=== PATIENT | female | born 1940 | race Caucasian/White ===

== ENCOUNTER 2016-07-29 10:39 | Inpatient (IN) | payer MEDICARE ==
[~2016-07-29] VITALS: Ht 157.5 cm; Wt 81.3 kg
[~2016-07-29 10:39] MED LIST: ESTRGEL; NIFE20 PO; ROPI.25 PO; ROPI.5 PO
[2016-07-29 10:58] VITALS: BP 164/75; PULSE 79; RESP 18; TEMP 98.8; O2SAT 96
[2016-07-29] MEDS ORDERED: NIFE10 PO (11:53)
[2016-07-29] MEDS ORDERED: ESTRGEL (11:53)
[2016-07-29] MEDS ORDERED: LOSA50TA PO (11:53)
[2016-07-29] MEDS ORDERED: ZITH500T PO (11:55)
--- NOTE | 2016-07-29 13:42 | PD ---
HPI Chief Complaint: Respiratory Symptoms Time Seen by Provider: 13:29 Travel History International Travel<30 days: No Contact w/Intl Traveler<30days: No Traveled to known affect area: No History of Present Illness HPI This 75-year-old female is complaining of cough and malaise. She says that Saturday she called her primary care doctor because of the symptoms. He saw her on and ordered a chest x-ray. The chest x-ray apparently showed pneumonia. She was initially started on amoxicillin. This was changed to Augmentin. He is also had 4 tablets of Zithromax She has been coughing and has had sporadic vomiting. She says that she has coughed up some blood. She has been wheezing at times. She has no history of asthma. She has never smoked. She has been having fevers primarily at night. PFSH Past Medical History Cancer: No Cardiovascular Problems: No Diabetes: No Diminished Hearing: No GERD: Yes Hepatitis: No Hiatal Hernia: No Hypertension: Yes Musculoskeletal: Yes (CHRONIC SCIATIC PAIN) Psychiatric: No Respiratory: No Thyroid Disease: No Influenza Vaccination: Yes Menopausal: Yes : 3 Para: 1 Tubal Ligation: Yes Past Surgical History Abdominal Surgery: Yes (GALLBLADDER ) Cholecystectomy: Yes Genitourinary Surgery: Yes (TUBAL LIGATION, HYSTERECTOMY ) Hysterectomy: Yes Neurologic Surgery: Yes (LUMBAR FUSION 2010) Pacemaker: No Other Surgery: Yes (BREAST IMPLANTS) Social History Alcohol Use: No Tobacco Use: No Substance Use: No Allergies-Medications (Allergen,Severity, Reaction): Coded Allergies: No Known Allergies (Unverified , 07/29/16) Reported Meds & Prescriptions Reported Meds & Active Scripts Active Requip (Ropinirole HCl) 0.5 Mg Tab 0.5 Mg PO HS Reported Zithromax (Azithromycin) 500 Mg Tab 500 Mg PO DAILY Estrogel Topical (Estradiol) 0.06% Gel 1 Losartan (Losartan Potassium) 50 Mg Tab 50 Mg PO DAILY Procardia (Nifedipine) 10 Mg Cap 20 Mg PO DAILY Review of Systems General / Constitutional: Positive: Fever, Chills Eyes: No: Diploplia, Blurred Vision HENT: No: Headaches, Vertigo Cardiovascular: No: Chest Pain or Discomfort, Palpitations Respiratory: Positive: Cough, Shortness of Breath, Wheezing, Hemoptysis Gastrointestinal: Positive: Vomiting Genitourinary: No: Urgency, Frequency Musculoskeletal: No: Myalgias, Arthralgias Skin: No Rash Neurologic: Positive: Weakness Hematologic/Lymphatic: No: Easy Bruising Physical Exam Narrative GENERAL: Well-developed female SKIN: Warm and dry. HEAD: Atraumatic. Normocephalic. EYES: Pupils equal and round. No scleral icterus. No injection or drainage. ENT: No nasal bleeding or discharge. Mucous membranes pink and moist. NECK: Trachea midline. No JVD. CARDIOVASCULAR: Regular rate and rhythm. No murmur appreciated. RESPIRATORY: No accessory muscle use. There are scattered wheezes or prominent in the right hemithorax. Breath sounds equal bilaterally. GASTROINTESTINAL: Abdomen soft, non-tender, nondistended. Hepatic and splenic margins not palpable. MUSCULOSKELETAL: No obvious deformities. No clubbing. No cyanosis. No edema. NEUROLOGICAL: Awake and alert. No obvious cranial nerve deficits. Motor grossly within normal limits. Normal speech. PSYCHIATRIC: Appropriate mood and affect; insight and judgment normal. Data Data Last Documented VS Vital Signs Date Time Temp Pulse Resp B/P Pulse Ox O2 Delivery O2 Flow Rate FiO2 07/29/16 12:02 14 96 Room Air 07/29/16 10:58 98.8 79 164/75 Orders Complete Blood Count With Diff (07/29/16 13:37) Comprehensive Metabolic Panel (07/29/16 13:37) Lactic Acid Sepsis Protocol (07/29/16 13:37) Influenzae A/B Antigen (07/29/16 13:37) Urinalysis - C+S If Indicated (07/29/16 13:37) Blood Culture (07/29/16 13:37) Chest, Single Ap (07/29/16 13:37) Sodium Chloride 0.9% Flush (Ns Flush) (07/29/16 13:45) Ceftriaxone Inj (Rocephin Inj) (07/29/16 14:10) Azithromycin Inj (Zithromax Inj) (07/29/16 14:10) Potassium Chloride (Kcl) (07/29/16 14:45) Labs Laboratory Tests Test 07/29/16 07/29/16 13:44 13:50 Urine Collection Type CLEAN CATCH Urine Color YELLOW Urine Turbidity CLEAR Urine pH 6.0 Urine Specific [place] 1.025 Urine Protein 100 mg/dL Urine Glucose (UA) NEG mg/dL Urine Ketones NEG mg/dL Urine Occult Blood MOD Urine Nitrite NEG Urine Bilirubin NEG Urine Leukocyte Esterase NEG Urine RBC 0-3 /hpf Urine WBC 0-2 /hpf Urine Amorphous Sediment FEW Microscopic Urinalysis Comment CULT NOT INDICATED White Blood Count 9.1 TH/MM3 Red Blood Count 4.06 MIL/MM3 Hemoglobin 11.7 GM/DL Hematocrit 35.0 % Mean Corpuscular Volume 86.2 FL Mean Corpuscular Hemoglobin 28.7 PG Mean Corpuscular Hemoglobin 33.3 % Concent Red Cell Distribution Width 12.5 % Platelet Count 337 TH/MM3 Mean Platelet Volume 7.2 FL Neutrophils (%) (Auto) 71.3 % Lymphocytes (%) (Auto) 14.3 % Monocytes (%) (Auto) 11.9 % Eosinophils (%) (Auto) 2.2 % Basophils (%) (Auto) 0.3 % Neutrophils # (Auto) 6.5 TH/MM3 Lymphocytes # (Auto) 1.3 TH/MM3 Monocytes # (Auto) 1.1 TH/MM3 Eosinophils # (Auto) 0.2 TH/MM3 Basophils # (Auto) 0.0 TH/MM3 CBC Comment DIFF FINAL Differential Comment Sodium Level 143 MEQ/L Potassium Level 2.8 MEQ/L Chloride Level 107 MEQ/L Carbon Dioxide Level 26.0 MEQ/L Anion Gap 10 MEQ/L Blood Urea Nitrogen 17 MG/DL Creatinine 0.87 MG/DL Estimat Glomerular Filtration 64 ML/MIN Rate Random Glucose 94 MG/DL Lactic Acid Level 1.4 mmol/L Calcium Level 8.5 MG/DL Total Bilirubin 0.6 MG/DL Aspartate Amino Transf 58 U/L (AST/SGOT) Alanine Aminotransferase 71 U/L (ALT/SGPT) Alkaline Phosphatase 135 U/L Total Protein 7.5 GM/DL Albumin 2.6 GM/DL [facility] Medical Decision Making Medical Screen Exam Complete: Yes Emergency Medical Condition: Yes Medical Record Reviewed: Yes Differential Diagnosis Differential includes pneumonia, URI, influenza Narrative Course Chest x-ray shows extensive infiltrate in the right side of the thorax. I was able to review the x-ray that was done at [facility] last week and the x-ray today shows considerable progression of her pneumonia. Patient has failed outpatient treatment Diagnosis Primary Impression: Pneumonia Qualified Code: J18.9 - Pneumonia of right lung due to infectious organism, unspecified part of lung Admitting Information Admitting Physician Requests: Admit Domingo Emery MD Jul 29, 2016 13:41
[2016-07-29] MEDS ORDERED: SODIUM CHLORIDE 0.9% FLUSH 5 ML FLUSH IVF PRN (13:45)
[2016-07-29 13:56] LABS: GLUCOSE,URINE NEG (NEG); KETONE, URINE NEG (NEG); NITRITE,URINE NEG (NEG)
[2016-07-29 13:57] LABS: BLOOD, URINE MOD (NEG); METHOD OF COLLECTION CLEAN CATCH; URINE COLOR YELLOW (YELLW/STRAW)
[2016-07-29 14:01] LABS: COMMENT (UR) CULT NOT INDICATED; CULTURE IF INDICATED CULT NOT INDICATED; RBC, URINE 0-3 /hpf (0-3); WBC, URINE 0-2 /hpf (0-5)
[2016-07-29] MEDS ORDERED: cefTRIAXone INJ 2,000 MG in SODIUM CHLORIDE 0.9% INJ 100 ML IV STA (14:10)
[2016-07-29] MEDS ORDERED: AZITHROMYCIN INJ 500 MG in SODIUM CHLOR 0.9% 250 ML INJ 250 ML IV STA (14:10)
[2016-07-29 14:12] LABS: AUTOMATED NEUTROPHIL # 6.5 TH/MM3 (1.8-7.7); BASOPHIL % 0.3 % (0.0-2.0); EOSINOPHIL # 0.2 TH/MM3 (0-0.4); EOSINOPHIL % 2.2 % (0.0-4.0); LYMPH % 14.3 % (9.0-44.0); LYMPHOCYTE # 1.3 TH/MM3 (1.0-4.8); MEAN CELL VOLUME 86.2 FL (80.0-100.0); MEAN CORPUSCULAR HEMOGLOBIN 28.7 PG (27.0-34.0); MEAN CORPUSCULAR HGB CONC 33.3 % (32.0-36.0); MONO % 11.9 % (0.0-8.0); NEUT % 71.3 % (16.0-70.0); PLATELET COUNT 337 TH/MM3 (150-450); RED BLOOD COUNT 4.06 MIL/MM3 (4.00-5.30); RED CELL DISTRIBUTION WIDTH 12.5 % (11.6-17.2); WHITE BLOOD COUNT 9.1 TH/MM3 (4.0-11.0)
[2016-07-29 14:17] LABS: HEMO FLAGS DIFF FINAL
--- NOTE | 2016-07-29 14:24 | RADHPO ---
EXAM DATE/TIME: 07/29/2016 14:05 [facility] COMPARISON: No previous studies available for comparison. INDICATIONS : Cough. Short of breath. MEDICAL HISTORY : None. SURGICAL HISTORY : None. ENCOUNTER: Initial ACUITY: 3 days PAIN SCORE: 0/10 LOCATION: Bilateral chest FINDINGS: The left lung is clear. There is patchy airspace disease in the right mid to upper lung zone. Cardiom egaly. Osseous structures are intact. CONCLUSION: Right lung airspace disease. Santos Briseno MD on July 29, 2016 at 14:22 Board Certified Radiologist. This report was verified electronically.
[2016-07-29 14:31] LABS: ALKALINE PHOSPHATASE 135 U/L (45-117); ALT (GPT) 71 U/L (10-53); ANION GAP 10 MEQ/L (5-15); AST (GOT) 58 U/L (15-37); BLOOD UREA NITROGEN 17 MG/DL (7-18); CHLORIDE 107 MEQ/L (98-107); GLOMERULAR FILTRATION RATE 64 ML/MIN (>89); SODIUM (NA) 143 MEQ/L (136-145); TOTAL BILIRUBIN ADULT 0.6 MG/DL (0.2-1.0)
[2016-07-29 14:33] LABS: POTASSIUM 2.8 MEQ/L (3.5-5.1)
[2016-07-29] MEDS ORDERED: POTASSIUM CHLORIDE 10 MEQ CONTROLLED RELEASE TAB PO ONE (14:45)
[2016-07-29 15:18] VITALS: BP 161/99; PULSE 74; RESP 20; TEMP 98.5; O2SAT 94
[2016-07-29] MEDS ORDERED: ENOXAPARIN SODIUM 40 MG/0.4 ML SYRINGE SQ SCH (16:00)
[2016-07-29] MEDS ORDERED: ONDANSETRON HCL 4 MG/2 ML VIAL IVP PRN (16:15)
[2016-07-29] MEDS ORDERED: NALOXONE HCL 0.4 MG/ML AMP IV PRN (16:15)
[2016-07-29] MEDS ORDERED: SODIUM CHLORIDE 0.9% FLUSH 5 ML FLUSH FLUSH PRN (16:15)
[2016-07-29] MEDS ORDERED: ACETAMINOPHEN 325 MG TAB PO PRN (16:15)
--- NOTE | 2016-07-29 16:26 | MH ---
cc: FLAVIO EDGE MD DATE OF ADMISSION: 07/29/2016 CHIEF COMPLAINT: Cough, congestion, shortness of breath for two weeks. HISTORY OF PRESENT ILLNESS This is a 75-year-old female with past medical-surgical history significant for chronic sciatic pain, hypertension, gastroesophageal reflux disease, tubal ligation, gallbladder surgery, hysterectomy, lumbar fusion in 2010 and breast implants who came to the emergency room at [facility] complaining of cough, congestion and wheezing for the last two weeks. The patient saying that on Saturday she called her primary care doctor because of the symptoms and she saw her on Saturday and she ordered a chest x-ray. The patient was initially on amoxicillin and it was changed to Augmentin. The patient also had for tablets of Zithromax and she became more and more sick and had some vomiting and she stated she coughed up some blood. She has been wheezing at times. No history of asthma. She has never smoked. She has been having fever primarily at nighttime. She said she is feeling a little better since she came to the emergency room. She denies any chest pain, any abdominal pain or any nausea or vomiting, diarrhea, any black stool, blood in stool or any other symptoms. Other than that, nothing significant PAST MEDICAL HISTORY / PAST SURGICAL HISTORY: As dictated above. SOCIAL HISTORY: Denies smoking, drinking or taking any drugs. She lives at home with her . She works as an RN. ALLERGIES: NO KNOWN DRUG ALLERGIES. FAMILY HISTORY: Family history is significant for hypertension. MEDICATIONS: Her medications include: 1. Requip 0.5 milligrams p.o. at bedtime. 2. Zithromax 500 milligrams p.o. daily. 3. EstroGel topically. 4. Losartan 50 milligrams p.o. daily. 5. Procardia 20 milligrams p.o. daily. REVIEW OF SYSTEMS: Positive for cough, congestion, some brown phlegm with shortness of breath and wheezing. All other review of systems were negative. PHYSICAL EXAMINATION: GENERAL: On physical exam, this is a 75-year-old female lying on the bed not in acute distress. VITAL SIGNS: Temperature 98.5, heart rate 74, respirations 15, blood pressure 161/99, oxygen saturation 95% on room air. HEAD, EYES, EARS, NOSE, THROAT: Normocephalic and atraumatic. Extraocular muscles intact. Pupils equal, round and reactive to light. Oral mucosa moist. NECK: The neck is supple. No visible thyromegaly or neck mass. Trachea is central. CARDIOVASCULAR: Regular rate and rhythm. RESPIRATORY: Bilateral wheezing. Decreased air entry bilaterally. ABDOMEN: Abdomen soft and nontender. Bowel sounds audible. EXTREMITIES: No cyanosis or clubbing. Full range of motion of all extremities. NEUROLOGIC: Awake, alert and oriented times four. No focal deficits. SKIN: Warm and dry. PSYCHIATRIC: The patient is cooperative. Mood and affect are normal. LABORATORY DATA: CBC totally unremarkable except for neutrophils 71.3 high, monos 11.9 high. Basic metabolic profile is totally unremarkable except for potassium 2.8 low. Lactic acid level 1.4. AST 58 high, ALT 71 high, alkaline phosphatase 135 high. Albumin 2.6 low. Urine examination showed 100 protein high, moderate occult blood. Blood cultures x2 done are negative so far. Influenza A and B antigen negative. IMAGING STUDIES: Chest x-ray done shows right lung airspace disease. ASSESSMENT AND PLAN: 1. This is a 75-year-old female who came to the emergency room diagnosed with cough and shortness of breath most likely secondary to right-sided pneumonia. A. I will start the patient on Rocephin 1 gram IV daily and Zithromax 500 milligrams IV daily. B. The patient also has wheezing started on DuoNeb nebulization also Solu-Medrol 60 milligrams IV q. 6-hour nexus. 2. Hemoptysis. Consulted pulmonary for further recommendation. The patient has pneumonia and is on an antibiotic. 3. History of chronic back pain. Continue home medications. 4. History of hypertension. Continue home medications. Will monitor blood pressure. 5. History of restless leg syndrome. Continue with Requip. 6. Hypokalemia. Will replace potassium and monitor. Check magnesium level too. His has high liver function tests. Will monitor. 7. DVT prophylaxis. Lovenox 40 milligrams subcutaneous daily. 8. GI prophylaxis. Protonix 40 milligrams p.o. daily. We are going to manage the patient on a daily basis and make recommendations on a daily basis. Flavio Edge MD EA/ZEV /3:32 PM /4:13 PM
[2016-07-29] MEDS: SODIUM CHLOR 0.9% 1000 ML INJ 1,000 ML IV SCH (16:30)
[2016-07-29] MEDS: NIFEdipine 10 MG CAP PO SCH (16:31)
[2016-07-29] MEDS: PANTOPRAZOLE SOD 40 MG DELAYED RELEASE TAB PO SCH (16:31)
[2016-07-29] MEDS: LOSARTAN 50 MG TAB PO SCH (16:34)
[2016-07-29 16:42] VITALS: BP 190/94; PULSE 72; RESP 20; O2SAT 98
[2016-07-29] MEDS ORDERED: IOHEXOL 350 MG/ML 10 ML VIAL (for RAD DIAG) IV ONE ×2 (16:57→17:34)
[2016-07-29 17:47] VITALS: BP 117/59; PULSE 82; RESP 20; O2SAT 93
--- NOTE | 2016-07-29 17:49 | RADHPO ---
EXAM DATE/TIME: 07/29/2016 17:21 [facility] COMPARISON: No previous studies available for comparison. INDICATIONS : Short of breath for two weeks. IV CONTRAST: 95 cc IV RADIATION DOSE: 16.52 CTDIvol (mGy) MEDICAL HISTORY : Hypertension. Gastroesophageal reflux disease. SURGICAL HISTORY : Cholecystectomy. Tubal ligation.Hysterectomy.Breast implants ENCOUNTER: Initial ACUITY: 2 weeks PAIN SCALE: 0/10 LOCATION: chest TECHNIQUE: Volumetric scanning of the chest was performed using a pulmonary embolism protocol MIP images were re constructed. Using automated exposure control and adjustment of the mA and/or kV according to patien t size, radiation dose was kept as low as reasonably achievable to obtain optimal diagnostic quality images. FINDINGS: There is no pulmonary embolus. Heart size within normal limits. There is focal coronary artery calcif ication evident of the left anterior descending. Broad area of pneumonia seen in the right upper lobe. There is patchy atelectasis elsewhere of b oth lungs, primarily the bases. There is a small right pleural effusion. No pneumothorax. No lymphadenopathy demonstrated. CONCLUSION: 1. No pulmonary embolus. 2. Large pneumonia of the right upper lobe with a small right pleural effusion. 3. Patchy atelectasis of both lung bases. 4. Coronary artery calcification. Antonio Clark MD on July 29, 2016 at 17:45 Board Certified Radiologist. This report was verified electronically.
[2016-07-29] MEDS: methylPREDNISolone SOD SUCC 40 MG/1 ML VIAL IV PUSH SCH ×2 (18:03→22:04)
[2016-07-29] MEDS: RESP: ALBUTEROL 2.5 MG/IPRATROPIUM 0.5 MG NEB (SCH) NEB (19:28)
[2016-07-29 19:31] VITALS: O2SAT 94
[2016-07-29 20:00] VITALS: BP 136/73; PULSE 75; RESP 20; TEMP 96.8; O2SAT 93
--- NOTE | 2016-07-29 20:28 | MB ---
cc: PHANI EDGE MD, JOHN DATE OF CONSULTATION: 07/29/2016. REASON FOR CONSULTATION: Pneumonia and hemoptysis. 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 She then was having persistent symptoms with cough and yellow sputum and then was switched to Augmentin for four days but since she was not feeling any better, she was seen in and given a prescription for Zithromax. The patient also had some mild hemoptysis over the past two days and was thus was advised to come to the hospital for evaluation. Upon arrival, a chest x-ray was done, which showed an infiltrate in the right lung padron and she is now admitted and started on IV Rocephin and Zithromax. She denies any chest pains but had some fever yesterday and she denies any aspiration but has had some vomiting with coughing spells. The other history includes history for generalized weakness and muscle aches. PAST MEDICAL HISTORY: Past history includes: 1. History of chronic leg and back pain from previous lumbar surgery. 2. She has had hysterectomy in the past. 3. Cholecystectomy. 4. History for breast implants bilaterally. 5. Tubal ligation in the past. 6. There is no history of asthma or chronic lung disease. 7. Hypertension. HABITS: The patient does not smoke. No history of alcohol use. ALLERGIES: None listed. MEDICATIONS: Med list included: 1. Zithromax. 2. Losartan. 3. Procardia. FAMILY HISTORY: Noncontributory REVIEW OF SYSTEMS: The patient did have some fevers and sweats. She has nasal congestion and cough with expectoration and she denies any abdominal pains but has nausea and vomiting and has had hemoptysis but no hematemesis. Denies urinary symptoms. No leg or calf muscle pains but has numbness and pain in her feet. PHYSICAL EXAMINATION: GENERAL: This is an averagely built elderly lady who is alert and in no acute distress. VITAL SIGNS: Blood pressure is 150/70. Pulse is 88. Respirations 20. Temperature 98.2. HEAD, EYES, EARS, NOSE, THROAT: Head normocephalic. The pupils are reactive. Tongue is moist. Throat is injected. NECK: The neck is supple. No bruits. No lymphadenopathy. CHEST: Equal movements with percussion note resonant throughout. A few wheezes are scattered over the right lung field with occasional crackles in the right mid-chest. HEART: Heart sounds are regular. S1 and S2. No murmur. No S3. ABDOMEN: The abdomen is soft and benign. No masses. No organomegaly or tenderness. EXTREMITIES: No edema. Mild varicosities. No calf tenderness. NEUROLOGIC: Reflexes are 1+. No gross motor deficits. Cranial nerves are grossly intact. RECTAL: Rectal exam is deferred. SKIN: No lesions. IMPRESSION: 1. Right mid-lung pneumonia with hypoxemia. 2. Hemoptysis. 3. Rule out pulmonary emboli. 4. History of hypertension. 5. Hypokalemia. 6. Chronic back pain. PLAN: 1. The patient has been started on Rocephin 1 gram and Zithromax IV 500 milligrams, which will be continued. 2. Sputum will be sent for gram stain and culture as well as AFB stain and cultures. 3. A CTA of the chest to rule out PE. 4. Oxygen will be placed 2 liters nasal cannula nebulized DuoNeb solution continued four times a day. 5. Solu-Medrol 40 milligrams IV q. 6 hours. 6. Pulmonary function studies will be obtained when she is stable. 7. She may need to have a bronchoscopy to evaluate the lower airways. Thank you, Dr. Edge, for this consultation. MD AUGUSTINE Rodriguez/ZEV /4:30 PM /8:18 PM
[2016-07-29] MEDS: SODIUM CHLORIDE 0.9% FLUSH 5 ML FLUSH FLUSH SCH (21:00)
[2016-07-30] VITALS (9 sets, daily range): BP systolic 115–149; BP diastolic 63–76; PULSE 65–79; RESP 16–20; TEMP 95.9–97.6; O2SAT 93–98
[2016-07-30] MEDS: SODIUM CHLOR 0.9% 1000 ML INJ 1,000 ML IV SCH ×3 (02:06→22:18)
[2016-07-30] MEDS: methylPREDNISolone SOD SUCC 40 MG/1 ML VIAL IV PUSH SCH ×4 (05:26→22:19)
[2016-07-30 06:22] LABS: AUTOMATED NEUTROPHIL # 5.7 TH/MM3 (1.8-7.7); BASOPHIL % 0.2 % (0.0-2.0); EOSINOPHIL % 0.1 % (0.0-4.0); HEMATOCRIT 34.7 % (35.0-46.0); LYMPH % 10.7 % (9.0-44.0); LYMPHOCYTE # 0.7 TH/MM3 (1.0-4.8); MEAN CELL VOLUME 86.1 FL (80.0-100.0); MEAN CORPUSCULAR HEMOGLOBIN 28.3 PG (27.0-34.0); MEAN CORPUSCULAR HGB CONC 32.8 % (32.0-36.0); MONO % 4.5 % (0.0-8.0); NEUT % 84.5 % (16.0-70.0); PLATELET COUNT 345 TH/MM3 (150-450); RED BLOOD COUNT 4.03 MIL/MM3 (4.00-5.30); RED CELL DISTRIBUTION WIDTH 12.8 % (11.6-17.2); WHITE BLOOD COUNT 6.7 TH/MM3 (4.0-11.0)
[2016-07-30 06:25] LABS: CHLORIDE 112 MEQ/L (98-107); POTASSIUM 3.4 MEQ/L (3.5-5.1); SODIUM (NA) 146 MEQ/L (136-145)
[2016-07-30 06:26] LABS: HEMO FLAGS DIFF FINAL
[2016-07-30 06:30] LABS: ANION GAP 10 MEQ/L (5-15); BICARBONATE 23.7 MEQ/L (21.0-32.0)
[2016-07-30 06:31] LABS: BLOOD UREA NITROGEN 16 MG/DL (7-18)
[2016-07-30 06:33] LABS: ALT (GPT) 68 U/L (10-53)
[2016-07-30 06:34] LABS: AST (GOT) 49 U/L (15-37); GLOMERULAR FILTRATION RATE 85 ML/MIN (>89)
[2016-07-30 06:35] LABS: TOTAL BILIRUBIN ADULT 0.4 MG/DL (0.2-1.0)
[2016-07-30 06:36] LABS: ALKALINE PHOSPHATASE 127 U/L (45-117)
[2016-07-30] MEDS: RESP: ALBUTEROL 2.5 MG/IPRATROPIUM 0.5 MG NEB (SCH) NEB ×3 (07:25→19:46)
--- NOTE | 2016-07-30 08:44 | HHI.PR ---
Subjective History of Present Illness Patient feel better wheezing/SOB Better low potassium will replace Patient wants to DC Lovenox d/w EDITH Suarez at bed side. all questions answered Review of Systems Pulmonary Respiratory: Coughing, Shortness of Breath, Wheezing Vitals/Results Intake & Output 07/29/16 07/29/16 07/30/16 14:59 22:59 06:59 Intake Total 430 ml 220 ml Balance 430 ml 220 ml Intake Oral 80 ml 220 ml IV Total 350 ml # Voids 1 4 # Bowel Movements 0 0 Vital Signs Vital Signs Date Time Temp Pulse Resp B/P Pulse Ox O2 Delivery O2 Flow Rate FiO2 07/30/16 07:53 94 21 07/30/16 07:25 98 Nasal Cannula 2.00 07/30/16 04:00 97.1 65 20 134/73 98 07/30/16 00:00 96.1 69 20 121/65 96 07/29/16 20:00 96.8 75 20 136/73 93 07/29/16 19:31 94 Nasal Cannula 2.00 07/29/16 17:47 82 20 117/59 93 Nasal Cannula 2 07/29/16 16:42 72 20 190/94 98 Nasal Cannula 2 07/29/16 16:15 98 Nasal Cannula 2 07/29/16 15:18 98.5 74 20 161/99 94 Room Air 07/29/16 12:02 14 96 Room Air 07/29/16 10:58 98.8 79 18 164/75 96 CBC/BMP: 07/30/16 0535 07/30/16 0535 Lab Results Laboratory Tests Test 07/29/16 07/29/16 07/30/16 13:44 13:50 05:35 Urine Collection Type CLEAN CATCH Urine Color YELLOW Urine Turbidity CLEAR Urine pH 6.0 Urine Specific [place] 1.025 Urine Protein 100 mg/dL Urine Glucose (UA) NEG mg/dL Urine Ketones NEG mg/dL Urine Occult Blood MOD Urine Nitrite NEG Urine Bilirubin NEG Urine Leukocyte Esterase NEG Urine RBC 0-3 /hpf Urine WBC 0-2 /hpf Urine Amorphous Sediment FEW Microscopic Urinalysis Comment CULT NOT INDICATED White Blood Count 9.1 TH/MM3 6.7 TH/MM3 Red Blood Count 4.06 MIL/MM3 4.03 MIL/MM3 Hemoglobin 11.7 GM/DL 11.4 GM/DL Hematocrit 35.0 % 34.7 % Mean Corpuscular Volume 86.2 FL 86.1 FL Mean Corpuscular Hemoglobin 28.7 PG 28.3 PG Mean Corpuscular Hemoglobin 33.3 % 32.8 % Concent Red Cell Distribution Width 12.5 % 12.8 % Platelet Count 337 TH/MM3 345 TH/MM3 Mean Platelet Volume 7.2 FL 7.5 FL Neutrophils (%) (Auto) 71.3 % 84.5 % Lymphocytes (%) (Auto) 14.3 % 10.7 % Monocytes (%) (Auto) 11.9 % 4.5 % Eosinophils (%) (Auto) 2.2 % 0.1 % Basophils (%) (Auto) 0.3 % 0.2 % Neutrophils # (Auto) 6.5 TH/MM3 5.7 TH/MM3 Lymphocytes # (Auto) 1.3 TH/MM3 0.7 TH/MM3 Monocytes # (Auto) 1.1 TH/MM3 0.3 TH/MM3 Eosinophils # (Auto) 0.2 TH/MM3 0.0 TH/MM3 Basophils # (Auto) 0.0 TH/MM3 0.0 TH/MM3 CBC Comment DIFF FINAL DIFF FINAL Differential Comment Sodium Level 143 MEQ/L 146 MEQ/L Potassium Level 2.8 MEQ/L 3.4 MEQ/L Chloride Level 107 MEQ/L 112 MEQ/L Carbon Dioxide Level 26.0 MEQ/L 23.7 MEQ/L Anion Gap 10 MEQ/L 10 MEQ/L Blood Urea Nitrogen 17 MG/DL 16 MG/DL Creatinine 0.87 MG/DL 0.68 MG/DL Estimat Glomerular Filtration 64 ML/MIN 85 ML/MIN Rate Random Glucose 94 MG/DL 142 MG/DL Lactic Acid Level 1.4 mmol/L Calcium Level 8.5 MG/DL 8.0 MG/DL Magnesium Level 2.8 MG/DL Total Bilirubin 0.6 MG/DL 0.4 MG/DL Aspartate Amino Transf 58 U/L 49 U/L (AST/SGOT) Alanine Aminotransferase 71 U/L 68 U/L (ALT/SGPT) Alkaline Phosphatase 135 U/L 127 U/L Total Protein 7.5 GM/DL 7.0 GM/DL Albumin 2.6 GM/DL 2.3 GM/DL Microbiology Microbiology 07/29/16 Influenza Types A,B Antigen (RAYNA) - Final, Complete NEGATIVE FOR FLU A AND B ANTIGEN.... 07/29/16 Legionella Antigen, Received Pending 07/29/16 Streptococcus pneumoniae Antigen (M, Received Pending 07/29/16 Aerobic Blood Culture, Received Pending 07/29/16 Anaerobic Blood Culture, Received Pending 07/29/16 Aerobic Blood Culture, Received Pending 07/29/16 Anaerobic Blood Culture, Received Pending 07/30/16 Gram Stain, Received Pending 07/30/16 Sputum Culture, Received Pending 07/30/16 Acid Fast Stain, Received Pending 07/30/16 Mycobacterial Culture, Received Pending Physical Exam General General Appearance: Well Developed, Well Nourished, No Acute Distress, Comfortable Eyes Eye Exam: Sclera White, Extraocular Movement Intact Throat Throat Exam: Oral Mucosa [place] & Moist, Oral Pharynx Normal Neck Neck Exam: Neck Supple, Trachea Midline Pulmonary Resp Exam: Breath Sounds Equal Resp Remarks mild bilateral wheezing. Cardiology CV Exam: Regular, Normal Sinus Rhythm Gastrointestinal/Abdomen GI Exam: Soft, Non-Tender, Bowel Sounds Present Musculoskeletal MS Exam: Joints Intact, Normal Tone Integumentary Skin Exam: Clear, Warm, Dry, Intact, Normal Turgor Extremeties Extremities Exam: No Edema Neurologic Neuro Exam: Alert, Awake, Oriented, Speech Clear, Moving All Extremities, No Focal Deficits VTE Prophylaxis VTE Prophylaxis Device: SCDs PUD Prophylasis PUD Prophylaxis: Protonix Assessment/Plan Assessment/Plan ASSESSMENT AND PLAN: 1. This is a 75-year-old female who came to the emergency room diagnosed with cough and shortness of breath most likely secondary to right-sided pneumonia. the patient on Rocephin 1 gram IV daily and Zithromax 500 milligrams IV daily. The patient also has wheezing started on DuoNeb nebulization also Solu-Medrol 60 milligrams IV q. 6-hour nexus. 2. Hemoptysis. pulmonary input noted for further recommendation. The patient has pneumonia and is on an antibiotic. 3. History of chronic back pain. Continue home medications. 4. History of hypertension. Continue home medications. Will monitor blood pressure. 5. History of restless leg syndrome. Continue with Requip. 6. Hypokalemia. Will replace potassium and monitor. Checked magnesium ..noted. His has high liver function tests. Will monitor. 7. DVT prophylaxis. Patient refused Lovenox 40 milligrams subcutaneous daily. Started SCD. 8. GI prophylaxis. Protonix 40 milligrams p.o. daily. We are going to manage the patient on a daily basis and make recommendations on a daily basis. Discussed Condition with: Patient Flavio Robles MD Jul 30, 2016 08:44
[2016-07-30] MEDS ORDERED: POTASSIUM CL 40 MEQ/30 ML LIQ UDC PO ONE (08:45)
[2016-07-30] MEDS: LOSARTAN 50 MG TAB PO SCH (08:45)
[2016-07-30] MEDS: PANTOPRAZOLE SOD 40 MG DELAYED RELEASE TAB PO SCH (08:45)
[2016-07-30] MEDS: NIFEdipine 10 MG CAP PO SCH (08:45)
[2016-07-30] MEDS: SODIUM CHLORIDE 0.9% FLUSH 5 ML FLUSH FLUSH SCH ×2 (08:46→21:00)
[2016-07-30] MEDS: cefTRIAXone INJ 1,000 MG in SODIUM CHLORIDE 0.9% INJ 100 ML IV SCH (14:32)
[2016-07-30] MEDS: AZITHROMYCIN INJ 500 MG in SODIUM CHLOR 0.9% 250 ML INJ 250 ML IV SCH (17:38)
--- NOTE | 2016-07-30 18:04 | HHI.PR ---
Subjective Remarks Feels better . No further Hemoptysis. O2 sat 95 on RA. Good output. Objective Vital Signs Date Time Temp Pulse Resp B/P Pulse Ox O2 Delivery O2 Flow Rate FiO2 07/30/16 16:00 96.0 79 18 128/67 96 07/30/16 12:00 96.9 77 16 131/72 94 07/30/16 08:00 95.9 73 18 149/76 93 07/30/16 07:53 94 21 07/30/16 07:25 98 Nasal Cannula 2.00 07/30/16 04:00 97.1 65 20 134/73 98 07/30/16 00:00 96.1 69 20 121/65 96 07/29/16 20:00 96.8 75 20 136/73 93 07/29/16 19:31 94 Nasal Cannula 2.00 I/O 07/29/16 07/29/16 07/29/16 07/30/16 07/30/16 07/30/16 06:59 14:59 22:59 06:59 14:59 22:59 Intake Total 430 ml 220 ml Balance 430 ml 220 ml Intake Oral 80 ml 220 ml IV Total 350 ml # Voids 1 4 # Bowel Movements 0 0 Result Diagram: 07/30/16 0535 07/30/16 0535 Objective Remarks GENERAL: This is an averagely built elderly lady who is alert and in no acute distress. HEAD, EYES, EARS, NOSE, THROAT: Head normocephalic. The pupils are reactive. Tongue is moist. Throat is clear. NECK: The neck is supple. No bruits. No lymphadenopathy. CHEST: Equal movements with percussion note resonant throughout. A few wheezes are scattered over the right lung field with occasional crackles in the right mid-chest. HEART: Heart sounds are regular. S1 and S2. No murmur. No S3. ABDOMEN: The abdomen is soft and benign. No masses. No organomegaly or tenderness. EXTREMITIES: No edema. Mild varicosities. No calf tenderness. NEUROLOGIC: Reflexes are 1+. No gross motor deficits. Cranial nerves are grossly intact. RECTAL: Rectal exam is deferred. SKIN: No lesions. Assessment and Plan Assessment and Plan IMPRESSION: 1. Right mid-lung pneumonia with hypoxemia. 2. Hemoptysis. 3. Rule out pulmonary emboli. 4. History of hypertension. 5. Hypokalemia. 6. Chronic back pain. Plan: 1. Cont antibiotics. 2. Taper solumedrol to 40 mg q8h.and switch to prednisone in am, 40 mg daily with taper. 3. Nebs qid , duoneb. and switch to Symbicort and spiriva in am. 4. D/C O2. 5. PFT in am. 6. OK to go home on PO meds in am if stable. 7. Will F/U as OP in 2 weeks with CXR. Olivia Umana MD Jul 30, 2016 18:04
[2016-07-31] VITALS (8 sets, daily range): BP systolic 155–167; BP diastolic 74–99; PULSE 67–95; RESP 18–20; TEMP 95.6–98.7; O2SAT 93–96
[2016-07-31] MEDS: SODIUM CHLOR 0.9% 1000 ML INJ 1,000 ML IV SCH (05:38)
[2016-07-31] MEDS: methylPREDNISolone SOD SUCC 40 MG/1 ML VIAL IV PUSH SCH ×3 (05:38→17:45)
[2016-07-31 06:19] LABS: AUTOMATED NEUTROPHIL # 11.7 TH/MM3 (1.8-7.7); EOSINOPHIL % 0.1 % (0.0-4.0); HEMATOCRIT 31.2 % (35.0-46.0); LYMPH % 7.6 % (9.0-44.0); MEAN CELL VOLUME 86.3 FL (80.0-100.0); MEAN CORPUSCULAR HEMOGLOBIN 28.4 PG (27.0-34.0); MEAN CORPUSCULAR HGB CONC 32.9 % (32.0-36.0); MONO % 5.5 % (0.0-8.0); NEUT % 86.8 % (16.0-70.0); PLATELET COUNT 354 TH/MM3 (150-450); RED BLOOD COUNT 3.62 MIL/MM3 (4.00-5.30); RED CELL DISTRIBUTION WIDTH 13.2 % (11.6-17.2); WHITE BLOOD COUNT 13.4 TH/MM3 (4.0-11.0)
[2016-07-31 06:21] LABS: HEMO FLAGS AUTO DIFF
[2016-07-31 06:26] LABS: CHLORIDE 116 MEQ/L (98-107); POTASSIUM 3.8 MEQ/L (3.5-5.1); SODIUM (NA) 148 MEQ/L (136-145)
[2016-07-31 06:29] LABS: ANION GAP 10 MEQ/L (5-15); BICARBONATE 21.9 MEQ/L (21.0-32.0); BLOOD UREA NITROGEN 22 MG/DL (7-18)
[2016-07-31 06:32] LABS: ALT (GPT) 63 U/L (10-53); AST (GOT) 34 U/L (15-37); GLOMERULAR FILTRATION RATE 82 ML/MIN (>89)
[2016-07-31 06:34] LABS: TOTAL BILIRUBIN ADULT 0.2 MG/DL (0.2-1.0)
[2016-07-31 06:35] LABS: ALKALINE PHOSPHATASE 112 U/L (45-117)
[2016-07-31 06:39] LABS: BANDS 9 % (0-6); DOHLE BODIES PRESENT (NONE SEEN); METAMYELOCYTES 1 % (0-1); NEUTROPHIL # MANUAL DIFF 12.6 TH/MM3 (1.8-7.7); PLATELET ESTIMATE SMEAR NORMAL (NORMAL); PLATELET MORPHOLOGY NORMAL (NORMAL); POLYS (SEG NEUTROPHILS) 84 % (16-70); SCAN/DIFF FINAL DIFF MANUAL; TOXIC GRANULATION 1+ (NORMAL); WBC DIFF SAMPLE 100
[2016-07-31] MEDS: RESP: ALBUTEROL 2.5 MG/IPRATROPIUM 0.5 MG NEB (SCH) NEB ×3 (07:30→19:40)
--- NOTE | 2016-07-31 08:56 | HHI.PR ---
Subjective History of Present Illness Patient feel better wheezing/SOB Better low potassium resolved.. C/O Chest pain check Cardiac enzymes x 2 and cardiology consulted...d/w EDITH Mann at bed side. all questions answered to patient satification. Review of Systems Pulmonary Respiratory: Coughing, Shortness of Breath, Wheezing Vitals/Results Intake & Output 07/30/16 07/30/16 07/31/16 15:00 23:00 07:00 Intake Total 220 ml 600 ml Balance 220 ml 600 ml Intake Oral 220 ml 600 ml # Voids 5 1 3 # Bowel Movements 1 0 1 Vital Signs Vital Signs Date Time Temp Pulse Resp B/P Pulse Ox O2 Delivery O2 Flow Rate FiO2 07/31/16 07:31 96 21 07/31/16 04:00 97.8 74 18 167/94 95 07/31/16 00:00 97.8 67 18 162/78 96 07/30/16 20:00 97.6 71 16 115/63 96 07/30/16 19:46 94 21 07/30/16 16:00 96.0 79 18 128/67 96 07/30/16 12:00 96.9 77 16 131/72 94 CBC/BMP: 07/31/16 0550 07/31/16 0550 Lab Results Laboratory Tests Test 07/31/16 05:50 White Blood Count 13.4 TH/MM3 Red Blood Count 3.62 MIL/MM3 Hemoglobin 10.3 GM/DL Hematocrit 31.2 % Mean Corpuscular Volume 86.3 FL Mean Corpuscular Hemoglobin 28.4 PG Mean Corpuscular Hemoglobin 32.9 % Concent Red Cell Distribution Width 13.2 % Platelet Count 354 TH/MM3 Mean Platelet Volume 7.3 FL Neutrophils (%) (Auto) 86.8 % Lymphocytes (%) (Auto) 7.6 % Monocytes (%) (Auto) 5.5 % Eosinophils (%) (Auto) 0.1 % Basophils (%) (Auto) 0.0 % Neutrophils # (Auto) 11.7 TH/MM3 Lymphocytes # (Auto) 1.0 TH/MM3 Monocytes # (Auto) 0.7 TH/MM3 Eosinophils # (Auto) 0.0 TH/MM3 Basophils # (Auto) 0.0 TH/MM3 CBC Comment AUTO DIFF Differential Total Cells 100 Counted Neutrophils % (Manual) 84 % Band Neutrophils % 9 % Lymphocytes % 4 % Monocytes % 2 % Neutrophils # (Manual) 12.6 TH/MM3 Metamyelocytes 1 % Differential Comment FINAL DIFF MANUAL Toxic Granulation 1+ Dohle Bodies PRESENT Platelet Estimate NORMAL Platelet Morphology Comment NORMAL Red Cell Morphology Comment NORMAL Sodium Level 148 MEQ/L Potassium Level 3.8 MEQ/L Chloride Level 116 MEQ/L Carbon Dioxide Level 21.9 MEQ/L Anion Gap 10 MEQ/L Blood Urea Nitrogen 22 MG/DL Creatinine 0.70 MG/DL Estimat Glomerular Filtration 82 ML/MIN Rate Random Glucose 126 MG/DL Calcium Level 8.2 MG/DL Total Bilirubin 0.2 MG/DL Aspartate Amino Transf 34 U/L (AST/SGOT) Alanine Aminotransferase 63 U/L (ALT/SGPT) Alkaline Phosphatase 112 U/L Total Protein 6.5 GM/DL Albumin 2.3 GM/DL Physical Exam General General Appearance: Well Developed, Well Nourished, No Acute Distress, Comfortable Eyes Eye Exam: Sclera White, Extraocular Movement Intact Throat Throat Exam: Oral Mucosa [place] & Moist, Oral Pharynx Normal Neck Neck Exam: Neck Supple, Trachea Midline Pulmonary Resp Exam: Breath Sounds Equal Resp Remarks mild bilateral wheezing. Cardiology CV Exam: Regular, Normal Sinus Rhythm Gastrointestinal/Abdomen GI Exam: Soft, Non-Tender, Bowel Sounds Present Musculoskeletal MS Exam: Joints Intact, Normal Tone Integumentary Skin Exam: Clear, Warm, Dry, Intact, Normal Turgor Extremeties Extremities Exam: No Edema Neurologic Neuro Exam: Alert, Awake, Oriented, Speech Clear, Moving All Extremities, No Focal Deficits VTE Prophylaxis VTE Prophylaxis Device: SCDs PUD Prophylasis PUD Prophylaxis: Protonix Assessment/Plan Assessment/Plan ASSESSMENT AND PLAN: 1. This is a 75-year-old female who came to the emergency room diagnosed with cough and shortness of breath most likely secondary to right-sided pneumonia. the patient on Rocephin 1 gram IV daily and Zithromax 500 milligrams IV daily. The patient also has wheezing on DuoNeb nebulization also Solu-Medrol 60 milligrams IV q. 6-hour nexus. 2. Hemoptysis. pulmonary input noted for further recommendation. The patient has pneumonia and is on an antibiotic. 3. History of chronic back pain. Continue home medications. 4. History of hypertension. Continue home medications. Will monitor blood pressure. 5. History of restless leg syndrome. Continue with Requip. 6. Hypokalemia. resolved. Checked magnesium ..noted. High liver function tests. Will monitor...better. 7. DVT prophylaxis. Patient refused Lovenox 40 milligrams subcutaneous daily. on SCD. 8. GI prophylaxis. Protonix 40 milligrams p.o. daily. 9. Chest pain check Cardiac enzymes x 2 and cardiology consulted. 10. High liver function tests. Will monitor...better. We are going to manage the patient on a daily basis and make recommendations on a daily basis. Discussed Condition with: Patient Flaivo Robles MD Jul 31, 2016 08:56
[2016-07-31] MEDS ORDERED: ZITH500T PO (08:59)
[2016-07-31] MEDS ORDERED: CEFT500T3 PO (08:59)
[2016-07-31] MEDS: PANTOPRAZOLE SOD 40 MG DELAYED RELEASE TAB PO SCH (10:43)
[2016-07-31] MEDS: NIFEdipine 10 MG CAP PO SCH (10:43)
[2016-07-31] MEDS: SODIUM CHLORIDE 0.9% FLUSH 5 ML FLUSH FLUSH SCH ×2 (10:43→21:55)
[2016-07-31] MEDS: LOSARTAN 50 MG TAB PO SCH (10:43)
[2016-07-31] MEDS: cefTRIAXone INJ 1,000 MG in SODIUM CHLORIDE 0.9% INJ 100 ML IV SCH (15:48)
[2016-07-31] MEDS: AZITHROMYCIN INJ 500 MG in SODIUM CHLOR 0.9% 250 ML INJ 250 ML IV SCH (15:48)
[2016-08-01] VITALS: BP 159/93; PULSE 81; RESP 18; TEMP 97.1; O2SAT 96
[2016-08-01] MEDS: methylPREDNISolone SOD SUCC 40 MG/1 ML VIAL IV PUSH SCH ×4 (00:07→18:00)
[2016-08-01 04:00] VITALS: BP 159/93; PULSE 81; RESP 18; TEMP 97.1; O2SAT 96
[2016-08-01] MEDS: RESP: ALBUTEROL 2.5 MG/IPRATROPIUM 0.5 MG NEB (SCH) NEB ×2 (07:19→15:11)
[2016-08-01 07:20] VITALS: O2SAT 92
[2016-08-01 08:00] VITALS: BP 189/91; PULSE 85; RESP 17; TEMP 97.5; O2SAT 95
--- NOTE | 2016-08-01 08:32 | HHI.PR ---
Subjective History of Present Illness Patient feel better wheezing/SOB Better low potassium resolved.. C/O Chest pain check Cardiac enzymes x 2 and cardiology input nolted..ok to DC per cardiology......d/w EDITH Mann at bed side. all questions answered to patient satification. Review of Systems Pulmonary Respiratory: Coughing, Shortness of Breath, Wheezing Vitals/Results Intake & Output 07/31/16 07/31/16 08/01/16 15:00 23:00 07:00 Intake Total 360 ml Balance 360 ml Intake Oral 360 ml # Voids 2 1 # Bowel Movements 0 Vital Signs Vital Signs Date Time Temp Pulse Resp B/P Pulse Ox O2 Delivery O2 Flow Rate FiO2 08/01/16 08:00 97.5 85 17 189/91 95 08/01/16 07:20 92 21 08/01/16 04:00 97.1 81 18 159/93 96 08/01/16 00:00 97.1 81 18 159/93 96 07/31/16 20:00 97.2 81 18 155/80 94 07/31/16 19:40 95 21 07/31/16 16:00 95.6 79 18 155/84 94 07/31/16 11:58 98.7 95 20 157/99 96 CBC/BMP: 07/31/16 0550 07/31/16 0550 Lab Results Laboratory Tests Test 07/31/16 08/01/16 11:30 05:00 Troponin I LESS THAN 0.02 LESS THAN 0.02 NG/ML NG/ML Physical Exam General General Appearance: Well Developed, Well Nourished, No Acute Distress, Comfortable Eyes Eye Exam: Sclera White, Extraocular Movement Intact Throat Throat Exam: Oral Mucosa [place] & Moist, Oral Pharynx Normal Neck Neck Exam: Neck Supple, Trachea Midline Pulmonary Resp Exam: Breath Sounds Equal Resp Remarks mild bilateral wheezing. Cardiology CV Exam: Regular, Normal Sinus Rhythm Gastrointestinal/Abdomen GI Exam: Soft, Non-Tender, Bowel Sounds Present Musculoskeletal MS Exam: Joints Intact, Normal Tone Integumentary Skin Exam: Clear, Warm, Dry, Intact, Normal Turgor Extremeties Extremities Exam: No Edema Neurologic Neuro Exam: Alert, Awake, Oriented, Speech Clear, Moving All Extremities, No Focal Deficits VTE Prophylaxis VTE Prophylaxis Device: SCDs PUD Prophylasis PUD Prophylaxis: Protonix Assessment/Plan Assessment/Plan ASSESSMENT AND PLAN: 1. This is a 75-year-old female who came to the emergency room diagnosed with cough and shortness of breath most likely secondary to right-sided pneumonia. the patient on Rocephin 1 gram IV daily and Zithromax 500 milligrams IV daily. The patient also has wheezing on DuoNeb nebulization also Solu-Medrol 60 milligrams IV q. 6-hour nexus. 2. Hemoptysis. pulmonary input noted for further recommendation. The patient has pneumonia and is on an antibiotic. 3. History of chronic back pain. Continue home medications. 4. History of hypertension. Continue home medications. Will monitor blood pressure. 5. History of restless leg syndrome. Continue with Requip. 6. Hypokalemia. resolved. Checked magnesium ..noted. High liver function tests. Will monitor...better. 7. DVT prophylaxis. Patient refused Lovenox 40 milligrams subcutaneous daily. on SCD. 8. GI prophylaxis. Protonix 40 milligrams p.o. daily. 9. Chest pain check Cardiac enzymes x 2 and cardiology input nolted...ok to DC per cardiology. 10. High liver function tests. Will monitor...better. ok to dc home today. f/u with PCP/ Cardiology 1 week. Discussed Condition with: Patient Flavio Robles MD Aug 01, 2016 08:32
--- NOTE | 2016-08-01 08:36 | MB ---
cc: MICHELLE HAGEN MD DATE OF CONSULTATION: 08/01/2016 REASON FOR CONSULTATION Chest pain. HISTORY OF PRESENT ILLNESS Ms. Walker is a 75-year-old female who does have a history of hypertension and hyperlipidemia. She was admitted with pneumonia and hemoptysis. The patient reports that she has had some shortness of breath episodes related to her pneumonia. She was completely asymptomatic prior to becoming ill and specifically denies any chest pain or dyspnea on exertion. Yesterday when getting up to go to the bathroom she notes that she had some profound dyspnea. She felt like she could not breathe. Subsequently, she had an episode of chest discomfort that again felt like she could not breathe. It lasted approximately 5 minutes until she sat down and rested. She denies any further episodes. SOCIAL HISTORY The patient does not drink or smoke. ALLERGIES NO KNOWN DRUG ALLERGIES. OUTPATIENT MEDICATIONS Includes: 1. Requip. 2. Zithromax. 3. Losartan. 4. Procardia. PAST MEDICAL HISTORY 1. Hypertension. 2. Hyperlipidemia. 3. Chronic back pain. REVIEW OF SYSTEMS Except for the coughing and hemoptysis as noted above, all 12 systems are negative. FAMILY HISTORY Positive for CAD. PHYSICAL EXAMINATION VITAL SIGNS: Current vital signs are 97.1, 81, 18, 159/93. GENERAL: She is a well-appearing female who is in no apparent distress. NECK: Her neck is free from JVD. LUNGS: Lungs are bilaterally clear to auscultation. CARDIOVASCULAR: She has a normal S1 and S2. I did not appreciate any murmurs, rubs or gallops. ABDOMEN: The abdomen is soft. EXTREMITIES: The extremities are free from edema. LABORATORY FINDINGS Lab values significant for a hemoglobin of 10.3, a creatinine of 0.7 and serial troponins of less than 0.02/less than 0.02. EKG EKG is otherwise unremarkable. IMAGING STUDIES Chest CT shows pneumonia in the right upper lobe with right pleural effusion and patchy atelectasis. There is notation of coronary artery calcification. IMPRESSION Atypical chest pain - the patient certainly has multiple cardiovascular risk factors. She had one episode of chest pain that occurred in the setting of fairly severe pneumonia. At this point the patient has ruled out with serial enzymes and EKGs that are unremarkable. The patient and I discussed further workup and agree that outpatient workup in the next 10-14 days is reasonable. The patient requested this to be able to recover from her pneumonia which is not unreasonable. She is aware that should she have any chest pain that lasts more than 15-20 minutes she should seek immediate attention in the emergency room. Hypertension - this is under fair control on her present medication. Hyperlipidemia - the patient gives this by history but is not on a statin. Given the coronary calcifications I am going to start her on Atorvastatin. Coronary calcifications on CTA - as above she will undergo further risk stratification in the near future. Michelle Hagen M.D. TON/TLL /7:48 AM /8:20 AM
[2016-08-01] MEDS ORDERED: ASPIRIN 325 MG TAB PO SCH (09:00)
[2016-08-01] MEDS ORDERED: ASPIRIN 81 MG CHEW TAB PO SCH (09:00)
[2016-08-01] MEDS ORDERED: ATORVASTATIN 40 MG TAB PO SCH (09:00)
[2016-08-01] MEDS: LOSARTAN 50 MG TAB PO SCH (09:05)
[2016-08-01] MEDS: NIFEdipine 10 MG CAP PO SCH (09:05)
[2016-08-01] MEDS: PANTOPRAZOLE SOD 40 MG DELAYED RELEASE TAB PO SCH (09:05)
[2016-08-01] MEDS: SODIUM CHLORIDE 0.9% FLUSH 5 ML FLUSH FLUSH SCH (09:10)
[2016-08-01 09:55] LABS: HDL CHOLESTEROL 29.6 MG/DL (40.0-60.0)
--- NOTE | 2016-08-01 10:51 | EKG ---
Date Performed: 08/01/2016 Time Performed: 05:05:58 PTAGE: 75 years EKG: Sinus rhythm Lateral ST-T changes are nonspecific Borderline ECG PREVIOUS TRACING : 07/31/2016 11.33 DOCTOR: Karel Lindsey Interpretating Date/Time 08/01/2016 10:51:10
[2016-08-01 12:00] VITALS: BP 160/80; PULSE 88; RESP 17; TEMP 97.9; O2SAT 94
--- NOTE | 2016-08-01 12:07 | EKG ---
Date Performed: 07/31/2016 Time Performed: 11:33:32 PTAGE: 75 years EKG: Sinus rhythm . Poor R wave progression - probable normal variant Borderline ECG PREVIOUS TRACING : 05/14/2014 06.57 DOCTOR: Karel Lindsey Interpretating Date/Time 08/01/2016 12:06:58
[2016-08-01] MEDS: cefTRIAXone INJ 1,000 MG in SODIUM CHLORIDE 0.9% INJ 100 ML IV SCH (14:59)
[2016-08-01 16:00] VITALS: BP 130/71; PULSE 83; RESP 17; TEMP 97.8; O2SAT 92
[2016-08-01] MEDS: AZITHROMYCIN INJ 500 MG in SODIUM CHLOR 0.9% 250 ML INJ 250 ML IV SCH (16:01)
--- NOTE | 2016-08-01 17:36 | HHI.PR ---
Subjective Remarks Feels better .No cough. No further Hemoptysis. O2 sat 96 on RA. Good output. Going home Objective Vital Signs Date Time Temp Pulse Resp B/P Pulse Ox O2 Delivery O2 Flow Rate FiO2 08/01/16 16:00 97.8 83 17 130/71 92 08/01/16 12:00 97.9 88 17 160/80 94 08/01/16 08:00 97.5 85 17 189/91 95 08/01/16 07:20 92 21 08/01/16 04:00 97.1 81 18 159/93 96 08/01/16 00:00 97.1 81 18 159/93 96 07/31/16 20:00 97.2 81 18 155/80 94 07/31/16 19:40 95 21 I/O 07/31/16 07/31/16 07/31/16 08/01/16 08/01/16 08/01/16 07:00 15:00 23:00 07:00 15:00 23:00 Intake Total 600 ml 360 ml 480 ml Balance 600 ml 360 ml 480 ml Intake Oral 600 ml 360 ml 480 ml # Voids 3 2 1 # Bowel Movements 1 0 Result Diagram: 07/31/16 0550 07/31/16 0550 Objective Remarks GENERAL: This is an averagely built elderly lady who is alert and in no acute distress. HEAD, EYES, EARS, NOSE, THROAT: Head normocephalic. The pupils are reactive. Tongue is moist. Throat is clear. NECK: The neck is supple. No bruits. No lymphadenopathy. CHEST: Equal movements with percussion note resonant throughout. A few wheezes are scattered over the right lung field . HEART: Heart sounds are regular. S1 and S2. No murmur. No S3. ABDOMEN: The abdomen is soft and benign. No masses. No organomegaly or tenderness. EXTREMITIES: No edema. . No calf tenderness. NEUROLOGIC: Reflexes are 1+. No gross motor deficits. Cranial nerves are grossly intact. RECTAL: Rectal exam is deferred. SKIN: No lesions. Assessment and Plan Assessment and Plan IMPRESSION: 1. Right mid-lung pneumonia with hypoxemia. 2. Hemoptysis. 3. Rule out pulmonary emboli. 4. History of hypertension. 5. Hypokalemia. 6. Chronic back pain. Plan: 1. Cont antibiotics. and switch to ceftin 500 mg bid X 10 days 2. D/C prednisone 3. Symbicort 160/4.5 mcg , 2puffs bid 4. Combivent , 1 puff tid 5. PFT done 6. OK to go home 7. Will F/U as OP in 2 weeks with CXR. Olivia Umana MD Aug 01, 2016 17:36
--- NOTE | 2016-08-03 09:31 | RSPPFT ---
DATE OF PROCEDURE: 07/31/16 COMMENTS: Spirometry demonstrates an FEV1 of 1.9 at 67% of predicted, FVC of 2.5 at 51%, FEF 25-75 at 180%. Flow volume loops suggest a restrictive pattern. IMPRESSION: 1. No significant obstructive disease. 2. Mild to moderate restrictive disease.
--- NOTE | 2016-08-03 13:44 | MD ---
cc: FLAVIO EDGE MD ADMISSION DATE: 07/29/2016 DISCHARGE DATE: 08/01/2016 CONDITION AT THE TIME OF DISCHARGE: Satisfactory. DISCHARGE ACTIVITY: As tolerated. DISCHARGE DIET: Cardiac diet. ALLERGIES: NO KNOWN DRUG ALLERGIES. DISCHARGE MEDICATIONS: Include 1. Zithromax 500 milligrams p.o. daily for five days. 2. Ceftin 500 milligrams p.o. daily for ten days. 3. Estradiol topical as needed. 4. Losartan 50 milligrams p.o. daily. 5. Nifedipine 20 milligrams p.o. daily. 6. Requip 0.5 milligrams p.o. at bedtime. DISCHARGE INSTRUCTIONS: The patient was advised to follow with her primary care physician, pulmonary and cardiology in one week. ADMITTING DIAGNOSIS: Shortness of breath and cough secondary to right-sided pneumonia. DISCHARGE DIAGNOSIS: 1. Pneumonia, improving. 2. Hemoptysis. Pulmonology has seen the patient and wants to see the patient as an outpatient for further recommendations. 3. History of chronic back pain. 4. History of hypertension. 5. History of restless leg syndrome. The patient is on Requip. 6. Hypokalemia during the hospital stay, which has resolved. 7. High liver function tests, which improved. 8. Chest pain during the hospital stay. The patient was seen by a warp starter. Okay to discharge per cardiology. HOSPITAL COURSE: This is a 75-year-old female who came to the emergency room with cough, congestion and shortness of breath, and diagnosed with pneumonia. The patient was seen by pulmonology, Dr. Umana. The patient was given empiric antibiotics with Rocephin and Zithromax. The patient's condition improved. The patient was complaining of chest tightness during the hospital stay. Cardiology consulted. Okay to discharge per cardiology. Chest x-ray was done that showed right lung airspace disease. The patient also had a CT angio done that showed no pulmonary embolism, large pneumonia on the right upper lobe with a small right pleural effusion, patchy atelectasis of both lung bases, coronary artery calcification. The patient had hypokalemia during the hospital stay, which resolved. The patient had mild hypernatremia. The patient's ____ antigen IgG was 1.27, IgM was 0.10. The patient's sputum culture grew heavy growth of normal respiratory mark. Blood cultures x2 done were negative for four days. Legionella antigen was negative. Influenza A and B negative. No seen. DISPOSITION: The patient discharged in satisfactory condition. Further details in the medical record. Flavio Edge MD EA/ZEV /5:50 AM /1:37 PM
== END 2016-08-01 18:26 | disposition home or self-care (01) | DRG 194 ==
LOC: PHEFT 10:39 → PHEDA 14:44 → PH3B 18:49
PROVIDERS: ADMIT Specialist; ATTEND Specialist
DX: J18.9 Pneumonia, unspecified organism (principal); R04.2 Hemoptysis; E87.0 Hyperosmolality and hypernatremia; J90 Pleural effusion, not elsewhere classified; J98.11 Atelectasis; I10 Essential (primary) hypertension; G89.29 Other chronic pain; M54.9 Dorsalgia, unspecified; G25.81 Restless legs syndrome; E87.6 Hypokalemia; R09.02 Hypoxemia; K21.9 Gastro-esophageal reflux disease without esophagitis; M54.30 Sciatica, unspecified side; E78.5 Hyperlipidemia, unspecified; R07.89 Other chest pain; Z98.1 Arthrodesis status; Z98.82 Breast implant status
CPT/HCPCS: 71010; 71275; 76937; 80053; 80061; 81001; 82948; 83605; 83735; 84484; 85007; 85025; 85027; 86738; 87015; 87040; 87070; 87116; 87205; 87206; 87449; 87804; 93005; 94010; 94640; 94664; 96365; J0456; J0696; J1650; J2405; J2920; J7030; J7050; Q9967